=== PATIENT | female | born 1975 | race Caucasian/White ===

== ENCOUNTER 2018-02-28 19:05 | Emergency (ER) | payer SELFPAY ==
[2018-02-28 19:06] VITALS: BP 131/91; PULSE 69; RESP 15; TEMP 36.7; O2SAT 98; BMI 38.2
--- NOTE | 2018-02-28 19:29 | EKG12_ITS ---
Test Reason : ABD PAIN Blood Pressure : / mmHG Vent. Rate : 068 BPM Atrial Rate : 068 BPM P-R Int : 146 ms QRS Dur : 084 ms QT Int : 392 ms P-R-T Axes : 008 008 -02 degrees QTc Int : 416 ms Normal sinus rhythm Possible Inferior infarct , age undetermined Abnormal ECG Confirmed by HAMLET BARRIENTOS, HERNAN ([id number]), movie editor JONO MCDOWELL ([id number]) on 03/01/2018 2:19:57 PM Referred By: Confirmed By:HERNAN MCNULTY MD
--- NOTE | 2018-02-28 19:30 | ED.VISSUMM ---
- ER Visit Summary Date of Service: 02/28/18 Chief Complaint: Abdominal pain History of Present Illness: The patient is a 42 F presenting with abdominal pain. She states this started 1 hour prior to arrival. She took left over Vicodin and her pain has improved. She continues to feel nauseated. She denies vomiting or diarrhea. She has not had these symptoms in the past. Pain was epigastric in location. Denies other complaints. Physical Examination: Vitals are stable. Patient is afebrile. Alert no acute distress. HEENT exam is unremarkable. Neck is supple. Lungs are clear and equal bilaterally. Heart is regular rate and rhythm. Abdomen is soft right upper quadrant epigastric tenderness, no rebound or guarding Extremities are unremarkable. Skin is warm and dry. No focal neurologic deficit. Remainder of exam is unremarkable. Emergency Department Course and Treatment: Patient is given IV fluids, Zofran. EKG is sinus rate of 68. CBC normal except hemoglobin 11.2. Chemistries unremarkable. AST 46, lipase is normal. Troponin is negative. Delta troponin is negative. Ultrasound of the gallbladder shows cholelithiasis, the gallbladder nearly packed with gallstones. Similar features seen on prior imaging. There is minimal gallbladder wall thickening without pericholecystic fluid. The sonographic Guthrie sign is positive. On reevaluation, patient's pain is improved. Discussed with Dr. Delacruz and she will follow-up with the patient tomorrow. Patient is agreeable with this plan. Disposition: Discharge home Impression: Cholelithiasis This note was generated with [employer] dictation software. It may contain incorrect words, spelling, and punctuation that were not noted in review of the chart prior to signing ED Disposition - Plan for ED Patient: Disposition: Home or Assisted Living Chief Complaint: Abd Pain Instructions: ED Abdominal Pain Gallstone Poss Prescriptions: Hydrocodone Bitart/Apap 5-325 [[place] 5MG-325MG] 1 tablet PO Q4H PRN PRN 2 Days #10 tablet PRN Reason: Pain Ondansetron [Zofran Odt] 4 mg PO Q8H PRN PRN #10 tablet PRN Reason: Nausea Referrals: Ashley Delacruz MD [STAFF PHYSICIAN] - Humberto Hunter DO [Primary Care Provider] -
[2018-02-28 19:46] LABS: Absolute Neutrophil Count 7.5 X10^3/uL (2.0-7.7); Basophil# 0.02 X10^3/uL; Basophil% 0.2 % (0-1); Hematocrit 34.6 % (37-47); Hemoglobin 11.2 g/dl (12.0-15.0); Lymphocyte % 12.5 % (19-41); Mean Corp Hgb Conc 32.4 g/gl (32-36); Mean Corpuscular Hgb 25.1 pg (27.0-32.0); Mean Corpuscular Volume 77.4 fL (81-99); Mean Platelet Vol. 9.7 fl (6.2-12.0); Monocyte# 0.76 X10^3/uL; Monocyte% 7.9 % (0-10); Neutrophil # 7.52 X10^3/uL (2.7-7.7); Neutrophil % 78.1 % (47-70); Platelet Count 199 K/mm3 (150-450); RBC Distribution Width CV 15.4 % (11.6-14.6); Red Blood Count 4.47 M/mm3 (4.2-5.4); White Blood Count 9.6 K/mm3 (4.4-11.0)
[2018-02-28] MEDS: 0.9% Normal Saline 1,000 ML 1000 ML IV (19:46)
[2018-02-28 19:47] LABS: POSITIVE COUNT NO; POSITIVE DIFFERENTIAL NO; POSITIVE MORPHOLOGY NO
--- NOTE | 2018-02-28 19:51 | US_ITS ---
STUDY: ABDOMINAL ULTRASOUND - RIGHT UPPER QUADRANT REASON FOR VISIT: Female, 42 years old. Epigastric pain. History of cholelithiasis and nephrolithiasis. TECHNIQUE: Ultrasound evaluation of the right upper quadrant was performed with real-time and static marrero-scale imaging. TECHNICAL QUALITY: Adequate. COMPARISON: CT abdomen and pelvis 09/05/2015 FINDINGS: Liver: The liver measures 16.8 cm. There is normal echogenicity of the liver. The bile ducts are within normal limits. There is hepatic color flow. The direction of portal flow is hepatopetal. There is no demonstrated mass lesion. Gallbladder: Normal distended gallbladder. The gallbladder wall measures 3.5 mm. Mildly thickened. Positive sonographic Guthrie sign. There is no pericholecystic fluid. Multiple echogenic shadowing calculi nearly fill the gallbladder. Similar features were seen on prior CT scan of 09/05/2015. Common Bile Duct (C.B.D.): The common bile duct measures 4.8 mm. Pancreas: Normal size of the head, body and tail of the pancreas. There is normal echogenicity of the pancreas. There is no demonstrated pancreatic mass or cyst. Right Kidney: Normal size of the right kidney. The right kidney measures 11.7 cm. Normal renal cortex. Right renal cortex measures 1.1 cm. there are are small echogenic foci of the right kidney most consistent with small nonobstructing calyceal calculi. These echogenic foci each measure 4, 3, 3, and 4 mm respectively. There is no demonstrated renal mass or cyst. There is no right hydronephrosis. US/Gallbladder IMPRESSION: There is no hydronephrosis. Echogenic small foci of the right kidney are suspected represent small nonobstructing calyceal calculi. Of note, on the CT study of 09/05/2015 the patient was passing a right-sided renal calculus into the proximal ureter at that time. There were no retained calculi within the kidney at that time. The patient may have formed a few small new calculi since then. Cholelithiasis, the gallbladder nearly packed with gallstones. Similar features seen on prior imaging. There is minimal gallbladder wall thickening without pericholecystic fluid. The sonographic Guthrie sign is positive. Tenderness on palpation of the gallbladder is the most suspicious acute symptom. Mild gallbladder wall thickening in the presence of cholelithiasis could reflect chronic cholecystitis alone. Electronically Signed: Michel Jenkins, at 21:51 EDT Tel , Service support ,
[2018-02-28 20:01] LABS: ALB/GLOB Ratio 0.8 RATIO (0.9-2.4); AST(SGOT) 46 U/L (15-37); Alanine Aminotransfer ALT/SGPT 27 U/L (13-56); Albumin, Serum 3.2 g/dL (3.2-5.0); Alkaline Phosphatase 114 U/L (45-117); Anion Gap 8 (5-15); BUN 8 mg/dL (7-18); BUN/Creat Ratio 9.9 RATIO (10-20); Calcium,Total 8.1 mg/dL (8.5-10.1); Chloride 108 mmol/L (98-107); Creatinine, Serum 0.81 mg/dL (0.55-1.02); EST Glomerular Filtration Rate 82 mL/min (>60); Est Glom Filt Rate - Afr Amer 99 mL/min (>60); Glucose 101 mg/dL (74-106); Lipase 108 U/L (73-393); Protein, Total 7.2 g/dL (6.4-8.2); Sodium Level 139 mmol/L (136-145)
[2018-02-28 21:05] VITALS: BP 110/73; PULSE 65; RESP 14; O2SAT 95
[2018-02-28 23:00] VITALS: BP 107/77; PULSE 69; RESP 16; O2SAT 97
--- NOTE | 2018-02-28 23:22 | ED.DEP ---
ED Disposition - Plan for ED Patient: Chief Complaint: Abd Pain Instructions: ED Abdominal Pain Gallstone Poss Prescriptions: Hydrocodone Bitart/Apap 5-325 [[place] 5MG-325MG] 1 tablet PO Q4H PRN PRN 2 Days #10 tablet PRN Reason: Pain Ondansetron [Zofran Odt] 4 mg PO Q8H PRN PRN #10 tablet PRN Reason: Nausea Referrals: Humberto Hunter DO [Primary Care Provider] - Ashley Delacruz MD [STAFF PHYSICIAN] -
[2018-02-28 23:54] VITALS: BP 108/66; PULSE 72; RESP 19; O2SAT 96
== END 2018-03-01 00:01 | disposition home or self-care (01) ==
LOC: ED 19:39
PROVIDERS: Emergency Provider Emergency Medicine; Family Provider Family Medicine; PCP Family Medicine
DX: K80.20 Calculus of gallbladder without cholecystitis without obstruction (principal); E07.9 Disorder of thyroid, unspecified
CPT/HCPCS: 76705; 80053; 83690; 84484; 85025; 93005; 99285; A4216; J2405

== ENCOUNTER → 2018-11-13 06:56 | Outpatient (CLI) | payer SELFPAY ==
--- NOTE | 2018-11-13 07:02 | CT_ITS ---
STUDY: CT ABDOMEN AND PELVIS WITHOUT CONTRAST REASON FOR EXAM: Female, 43 years old. RADIATION DOSAGE (If Supplied By Facility): CTDIvol = ( 18.43 ) mGy, DLP = ( 939.39 ) mGycm TECHNIQUE: Transaxial images were obtained from the dome of the diaphragm to the symphysis pubis without oral contrast, and without intravenous contrast. Sagittal and coronal images were reconstructed. Individualized dose optimization techniques were used for this CT. COMPARISON: September 07, 2015. FINDINGS: The visualized lung bases are unremarkable. The visualized portions of the heart are within normal limits. Normal liver. Tiny calcified gallstones, no dilatation of the intra or extrahepatic biliary system.. Normal spleen. Normal pancreas. Normal bilateral adrenal glands. Normal right kidney. The left kidney there is tiny calcification in the upper calyx. No hydronephrosis seen on either side. There is evidence of diverticulosis involving the sigmoid and descending colon without diverticulitis. The appendix is intact. There is a 5 cm left adnexal cyst. No evidence of free air within the peritoneal cavity and no ascites. The visualized bones are intact CT/Abdomen/Pelvis without Cont IMPRESSION: Tiny calcification upper aspect of the left kidney. Tiny gallstones. 5 cm Left adnexal cyst. The previously described the stone in the right ureter and also in the left kidneys are not seen today except for the tiny calcification mentioned on the left Electronically Signed: John Welch, at 9:40 EDT Tel , Service support ,
== END ==
PROVIDERS: Family Provider Family Medicine; PCP Family Medicine; Referring Provider Urology; Visit Provider Urology
DX: N20.0 Calculus of kidney (principal)
CPT/HCPCS: 74176

== ENCOUNTER → 2018-11-17 10:14 | Outpatient (CLI) | payer SELFPAY ==
--- NOTE | 2018-11-17 10:20 | CT_ITS ---
STUDY: CT ABDOMEN AND PELVIS WITH AND WITHOUT CONTRAST REASON FOR EXAM: Female, 43 years old. Gross hematuria. RADIATION DOSAGE (If Supplied By Facility): CTDIvol = ( 27.54 ) mGy, DLP = ( 5889.79 ) mGycm TECHNIQUE: Transaxial images were obtained from the dome of the diaphragm to the symphysis pubis without oral contrast. 100 ml of Isovue 370 contrast was administered. Sagittal and coronal images were reconstructed. Imaging was obtained precontrast, portal venous and delayed renal excretory phase of contrast. Individualized dose optimization techniques were used for this CT. COMPARISON: None. FINDINGS: Body wall soft tissues: No acute process. Osseous structures: No acute process. Inferior chest: No acute process. Hepatobiliary: Solitary tiny calculus of the gallbladder fundus. No gallbladder inflammation. Nondilated biliary tree. Normal liver. Pancreas: No acute process. Spleen: Normal. Adrenal glands: Normal. Urogenital: Solitary punctate nonobstructing calyceal calculus of the left kidney mid polar posterior calyx, measuring less than 3 mm. No calculi in the right kidney. Normal collecting systems, ureters, urinary bladder. Unremarkable right ovary with small follicles. Dominant thin-walled low-density cyst of the left ovary with a long axis dimension 4.9 cm, short axis III.4 cm. Simple cystic features. However, ultrasound characterization is recommended. The left ovary lies in the anterior left adnexa and may be best characterized with transabdominal ultrasound of the pelvis. There is no cul-de-sac free fluid. Pelvic floor and sidewalls and retroperitoneum: No mass or adenopathy. Vasculature: No acute process. Stomach: No acute process. Small bowel and mesentery: No acute process. Large bowel: Normal appendix. Unremarkable large bowel and rectum. Free fluid or free air: None. CT/CT Abd/Pelvis W/WO Contrast IMPRESSION: Solitary punctate nonobstructing calyceal calculus of the left kidney. There is no convincing evidence of recent calculus passage. No hydronephrosis or hydroureter. No ureteral calculus. No inflammatory induration in the fat surrounding the ureters. Normal features of the urinary bladder. Left ovarian cyst, 4.9 cm. Ultrasound characterization is recommended. No other acute abdominopelvic process is evident. Electronically Signed: Michel Jenkins MD at 12:19 EDT Tel , Service support ,
== END ==
PROVIDERS: Family Provider Family Medicine; PCP Family Medicine; Referring Provider Urology; Visit Provider Urology
DX: N20.0 Calculus of kidney (principal); N83.202 Unspecified ovarian cyst, left side; R31.0 Gross hematuria
CPT/HCPCS: 74178; Q9967

== ENCOUNTER → 2021-11-19 | Outpatient (CLI) | payer SELFPAY ==
--- NOTE | 2021-11-19 14:02 | US_ITS ---
STUDY: RENAL ULTRASOUND - COMPLETE REASON FOR EXAM: Female, 46 years old. HX OF CALCULUS OF KIDNEY TECHNIQUE: Ultrasound evaluation of the kidneys was performed with real-time and static yip-scale imaging. COMPARISON: None. FINDINGS: RIGHT KIDNEY: Length: 12 cm. Parenchyma: 0.4 cm calculus at the upper pole. Hydronephrosis: None. LEFT KIDNEY: Length: 13.3 cm. Parenchyma: 0.4 cm calculus interpolar. 1 x 0.8 x 1 cm cyst medial. Hydronephrosis: None. BLADDER: Mildly distended. Bladder volume 182 mm. No wall thickening or debris. Bilateral ureteral jets visualized. US/Kidney and Bladder IMPRESSION: Bilateral nephrolithiasis with small nonobstructing calculi. No hydronephrosis. Electronically Signed: Karla Younger MD at 4:00 EDT ,
== END | disposition home or self-care (01) ==
PROVIDERS: PCP Family Medicine; Referring Provider Urology; Visit Provider Urology
DX: N20.0 Calculus of kidney (principal); Z87.442 Personal history of urinary calculi
CPT/HCPCS: 76770